=== PATIENT | female | born 2000 | race Caucasian/White ===

== ENCOUNTER 2019-08-22 11:13 | Emergency (ER) | payer BC ==
[~2019-08-22] VITALS: Ht 170.2 cm; Wt 66.4 kg
[2019-08-22 11:18] VITALS: BP 144/83; TEMP 98.4
[2019-08-22 11:36] LABS: COLLECTION METHOD CLEAN CATCH
[2019-08-22 12:10] LABS: AMORPHOUS CRYSTAL Present /uL; PH 9 (5-8); URINE APPEARANCE Turbid; URINE BACTERIA None Seen /hpf; URINE BILIRUBIN Negative (NEGATIVE); URINE BLOOD 3+ (NEGATIVE); URINE COLOR Yellow; URINE GLUCOSE Negative (NEGATIVE); URINE KETONE Negative (NEGATIVE); URINE LEUKOCYTE ESTERASE Negative (NEGATIVE); URINE NITRATE Negative (NEGATIVE); URINE PROTEIN(semi-quant) Negative (NEGATIVE); URINE RBC 20-50 /hpf
[2019-08-22 12:20] LABS: BASO # 0.1 (0.0-0.2); BASO % 0.7 % (0.0-2.0); EOS % 0.6 % (0-4.0); GRAN # 4.8 (1.4-6.5); HEMATOCRIT 43.6 % (35.0-45.0); HEMOGLOBIN 14.9 g/dl (12.0-15.0); LYMPH # 1.7 (1.2-3.4); LYMPH % 23.8 % (20.0-51.0); MEAN CELL VOLUME 85 fl (80.0-95.0); MEAN CORPUSCULAR HEMOGLOBIN 29 pg (26.0-32.0); MEAN CORPUSCULAR HGB CONC 34 g/dl (33.0-37.0); MEAN PLATELET VOLUME 9.9 fl (7.4-10.4); MONO # 0.5 (0.1-0.6); MONO % 7.6 % (1.7-9.3); PLATELET COUNT 241 K/mm3 (130-400); RED BLOOD COUNT 5.11 M/mm3 (4.10-5.30); REDCELL DISTRIBUTION WIDTH-CV 12.7 % (11.5-14.5)
[2019-08-22 12:30] LABS: ALBUMIN 4.8 gm/dL (3.5-5.0); BILIRUBIN,TOTAL 0.8 mg/dL (0.0-1.0); CALCIUM 10.2 mg/dL (8.4-10.2); CREATININE, serum 0.71 (0.52-1.25); TOTAL PROTEIN 8.1 gm/dL (6.4-8.2)
[2019-08-22] MEDS ORDERED: NAPROSYN500 MG PO (13:47)
[2019-08-22] MEDS ORDERED: BACTRIM DS 8001 TAB PO (13:54)
[2019-08-22 13:59] VITALS: PULSE 80
[2019-08-22 16:35] LABS: THYROID STIMULATING HORMONE 1.53 uIU/mL (0.465-4.680)
== END 2019-08-22 13:59 | disposition home or self-care (01) ==
LOC: COL.ER 11:13
PROVIDERS: Emergency Medicine; Nurse Practitioner Primary Care
DX: N92.0 Excessive and frequent menstruation with regular cycle (principal); R82.90 Unspecified abnormal findings in urine